=== PATIENT | female | born 1980 | race Caucasian/White ===

== ENCOUNTER 2016-07-22 16:49 | Emergency (ER) | payer MEDICAID ==
[~2016-07-22] VITALS: Wt 87.0 kg
[2016-07-22] MEDS ORDERED: ACETAMINOPHEN 500 MG TAB PO STA (17:18)
[2016-07-22] MEDS ORDERED: LEVALBUTEROL (NEB) 1.25 MG/0.5 ML AMP INH STA (17:18)
[2016-07-22] MEDS ORDERED: IPRATROPIUM (NEB) 0.5 MG/2.5 ML AMP NEB STA (17:18)
--- NOTE | 2016-07-22 17:28 | ERD ---
ER Documentation Chief Complaint Date/Time DATE: 07/22/16 TIME: 17:26 Chief Complaint COUGH AND WHEEZING SINCE LAST NIGHT. FEVER TODAY. HPI This is a 36-year-old female who presents to the emergency department today complaining of cough and wheezing that started yesterday. Patient states that she took NyQuil last night. States that she thinks she has a fever that started today. Denies any headache, nausea vomiting diarrhea, sore throat Denies any oral contraceptive use. Denies any cigarette smoke, and or prolonged travel, ROS All systems reviewed and are negative except as per history of present illness. Medications Home Meds Active Scripts Albuterol Sulfate* (Proair HFA*) 8.5 Gm Hfa.aer.ad, 2 PUFF INH Q4, #1 INHALER Prov:JUAN MEIER PA-C 07/22/16 Acetaminophen* (Tylophen*) 500 Mg Capsule, 1 CAP PO Q6H Y for PAIN AND OR ELEVATED TEMP, #30 CAP Prov:JUAN MEIER PA-C 07/22/16 Ibuprofen* (Motrin*) 600 Mg Tab, 600 MG PO Q6, #30 TAB Prov:JUAN MEIER PA-C 07/22/16 Guaifenesin-Dextromethorphan* (Robitussin* DM) 100MG/10MG/5ML Syrup, 10 ML PO Q4H Y for COUGH for 5 Days, ML Prov:JUAN MEIER PA-C 07/22/16 PMhx/Soc Medical and Surgical Hx: pt denies Medical Hx, pt denies Surgical Hx Hx Alcohol Use: No Hx Substance Use: No Physical Exam Vitals Vital Signs Date Time Temp Pulse Resp B/P Pulse Ox O2 Delivery O2 Flow Rate FiO2 07/22/16 17:35 105 22 99 21 07/22/16 17:00 101.5 105 22 131/75 99 Physical Exam Const: Obese, no acute distress Head: Atraumatic Eyes: Normal Conjunctiva ENT: His TMs normal. Nose no drainage. Throat no erythema no exudate Neck: Full range of motion..~ No meningismus. Resp: Clear to auscultation bilaterally. No absent breath sounds. No wheezing. Actively coughing Cardio: Regular rate and rhythm, no murmurs Abd: Soft, non tender, non distended. Normal bowel sounds Skin: No petechiae or rashes Neur: Awake and alert Psych: Normal Mood and Affect Results 24 hrs Current Medications Medications (Trade) Dose Ordered Sig/Bettye Route PRN Reason Start Time Stop Time Status Last Admin Dose Admin Ipratropium [place] (Atrovent 0.02% (Neb)) 0.5 mg ONCE STAT NEB 07/22/16 17:18 07/22/16 17:19 07/22/16 17:32 Levalbuterol (Xopenex Neb) 1.25 mg ONCE STAT INH 07/22/16 17:18 2 17:19 07/22/16 17:32 Acetaminophen (Tylenol Tab) 1,000 mg ONCE STAT PO 07/22/16 17:18 07/22/16 17:19 07/22/16 17:44 Procedures/MDM This a 36-year-old female who presents to the emergency department today for wheezing and cough that started last night. On physical exam patient does not have any wheezing however she is febrile at 101.5, tachycardic at 105. She is saturating at 99%. Patient was given a breathing treatment here in the emergency department she is actively coughing. I also obtained a chest x-ray. Chest x-ray read and interpreted by Dr. Chiang as negative. Low suspicion for pneumonia, PE, pleural effusion, abscess. She was given Tylenol here in the emergency department and fever improved. Patient's symptoms at this time consistent with URI likely viral versus influenza. Do not feel the patient requires antibiotics at this time. Patient will be given a prescription for Tylenol, Motrin, Robitussin as well as albuterol for any wheezing. At this time the patient is stable for discharge and outpatient management. Patient should follow up with their PCP in the next 1-2 days. They may return to the emergency department sooner for any persistent or worsening of symptoms. Patient understood and agreed with the plan. Departure Diagnosis: Primary Impression: Viral syndrome Condition: JUAN England PA-C Jul 22, 2016 17:28
[2016-07-22] MEDS ORDERED: UDROBDM PO (19:06)
[2016-07-22] MEDS ORDERED: IBUP-1542 PO (19:06)
[2016-07-22] MEDS ORDERED: ACET500C5 PO (19:07)
[2016-07-22] MEDS ORDERED: ALBU8.5H3 INH (19:08)
[2016-07-22 19:28] VITALS: BP 110/62; PULSE 99; RESP 16; TEMP 98.7
--- NOTE | 2016-07-22 20:01 | RADRPT ---
PROCEDURE: XR Chest. CLINICAL INDICATION: Cough. Fever TECHNIQUE: Single frontal chest x-ray. COMPARISON: None. FINDINGS: The lungs are clear of acute infiltrates, edema, effusions, or masses.. The cardiomediastinal silho uette is unremarkable. The osseous structures are intact. IMPRESSION: No acute cardiopulmonary disease. RPTAT: HJPL .Gold Mary MD, MD Date Time Electronically viewed and signed by .Gold Mary MD, MD on 07/22/2016 20:01 .L/
== END 2016-07-22 19:28 | disposition home or self-care (01) ==
LOC: FTE 16:49
DX: B34.9 Viral infection, unspecified (principal)
CPT/HCPCS: 71010; 94664; Z7502; Z7610

== ENCOUNTER 2016-09-16 20:23 | Emergency (ER) | payer OTHER ==
[~2016-09-16] VITALS: Ht 157.5 cm; Wt 97.5 kg
[~2016-09-16 20:23] MED LIST: ACET500C5 PO; ALBU8.5H3 INH; IBUP-1542 PO; UDROBDM PO
[2016-09-16 20:36] VITALS: Ht 157.5 cm; Wt 97.5 kg
[2016-09-16] MEDS ORDERED: HYDROCODONE/APAP (5/325) TAB PO ONE (22:00)
--- NOTE | 2016-09-16 22:30 | ERD ---
ER Documentation Chief Complaint Date/Time DATE: 09/16/16 TIME: 22:27 Chief Complaint Pt with R shoulder pain X 3 days. No injury noted. HPI Patient is a 36-year-old female who presents to the ED with right shoulder pain 3 days. She states that she is a [employer] and has been lifting patients develop pain after an incident 3 days ago. She states that she has difficulty moving her right arm. Denies numbness or tingling. Denies neck pain or neck stiffness. Denies back pain. Denies fever or chills. Denies abdominal pain, nausea, vomiting or diarrhea. She states that she is taking 1800 mg of ibuprofen today. no other complaints. ROS All systems reviewed and are negative except as per history of present illness. Medications Home Meds Active Scripts Naproxen* (Naprosyn*) 500 Mg Tablet, 500 MG PO BID Y for PAIN AND/OR INFLAMMATION, #30 TAB Prov:SACHIN MUSA PA-C 09/16/16 Albuterol Sulfate* (Proair HFA*) 8.5 Gm Hfa.aer.ad, 2 PUFF INH Q4, #1 INHALER Prov:JUAN MEIER PA-C 07/22/16 Acetaminophen* (Tylophen*) 500 Mg Capsule, 1 CAP PO Q6H Y for PAIN AND OR ELEVATED TEMP, #30 CAP Prov:JUAN MEIER PA-C 07/22/16 Ibuprofen* (Motrin*) 600 Mg Tab, 600 MG PO Q6, #30 TAB Prov:JUAN MEIER PA-C 07/22/16 Guaifenesin-Dextromethorphan* (Robitussin* DM) 100MG/10MG/5ML Syrup, 10 ML PO Q4H Y for COUGH for 5 Days, ML Prov:JUAN MEIER PA-C 07/22/16 PMhx/Soc Medical and Surgical Hx: pt denies Medical Hx, pt denies Surgical Hx History of Surgery: No Anesthesia Reaction: No Hx Neurological Disorder: No Hx Respiratory Disorders: No Hx Psychiatric Problems: No Hx Miscellaneous Medical Probl: Yes (Hypothyroidism) Hx Alcohol Use: No Hx Substance Use: No Smoking Status: Never smoker FmHx Family History: No coronary disease, No diabetes, No other Physical Exam Vitals Vital Signs Date Time Temp Pulse Resp B/P Pulse Ox O2 Delivery O2 Flow Rate FiO2 09/16/16 23:03 98.1 59 17 109/71 99 Room Air 09/16/16 20:36 98.6 71 14 104/60 99 Physical Exam GENERAL: Well-developed, well-nourished female. Appears in no acute distress. NECK: Supple. No lymphadenopathy or thyromegaly. No meningismus. negative kernig. negative brudinski. Nontender to spinal. Range of motion intact. LUNG: Clear to auscultation bilaterally. No rhonchi, wheezing, rales or coarse breath sounds. HEART: Regular rate and rhythm. No murmurs, rubs or gallops. Extremities: Equal pulses bilaterally. No peripheral clubbing, cyanosis or edema. No unilateral leg swelling. Tenderness to anterior shoulder. Minimal range of motion. Radius, ulnar and median nerve intact. Sensation intact. No wrist drop. No snuffbox tenderness. No pain below the shoulder joint. Or above the joint. NEUROLOGIC: Alert and oriented.. Normal speech. Steady gait. SKIN: Normal color. Warm and dry. No rashes or lesions. Capillary refill < 2 seconds Results 24 hrs Current Medications Medications (Trade) Dose Ordered Sig/Bettye Route PRN Reason Start Time Stop Time Status Last Admin Dose Admin Acetaminophen/ Hydrocodone Bitart ([place] (5/325)) 1 tab ONCE ONCE PO 09/16/16 22:00 09/16/16 22:01 DC 09/16/16 21:56 Procedures/MDM ER COURSE: I kept the patient and/or family informed of laboratory and diagnostic imaging results throughout the emergency room course. IMAGING STUDIES [place] [address] Radiology Main Line: [phone] DIAGNOSTIC IMAGING REPORT Patient: JOSSELYN LOPEZ : 1980 Age: 36 Sex: F MR #: [id number] [facility] #: [id number] DOS: 09/16/16 2147 Ordering MD: SACHIN MUSA PA-C Location: FTE Room/Bed: PROCEDURE: XR Right Shoulder. CLINICAL INDICATION: Right shoulder pain. TECHNIQUE: Three views. Frontal internal rotation, frontal external rotation , and scapular Y-view. COMPARISON: No prior study is available for comparison. FINDINGS: There is no fracture or dislocation. The soft tissues are normal. Articular surfaces are intact. There is no lytic or blastic lesion. There is no radiopaque foreign body. IMPRESSION: 1. Normal images of the right shoulder. RPTAT: QQ .Erick Granados MD, Date Time Electronically viewed and signed by .Erick Granados MD, on 09/16/2016 22:46 .R/ CC: SACHIN MUSA PA-C MEDICATIONS [place]. Tolerated well with no adverse reaction. Stated improvement in her symptoms. MEDICAL DECISION MAKING: This is a 36-year-old female who presents with right shoulder pain 3 days. Vital signs were reviewed. Patient is afebrile. Patient is not hypoxic. Patient is not toxic or ill-appearing. Patient has right shoulder pain of unknown etiology. Low suspicion for dislocation, fracture, septic joint, compartment syndrome, osteomyelitis, cellulitis, avascular necrosis, neurological injury, vascular injury, tendon laceration. Patient was given in ED sling. Neurovascularly intact post sling placement. DISCHARGE: At this time, patient is stable for discharge and outpatient management with no new complaints during the ER course. Patient was sent home with Naprosyn for pain, ice and heat. A copy of imaging study was given to patient.. Patient will be discharged home with instructions to recheck for new or worsening symptoms such as fever, nausea, weakness, LOC and to follow up with primary care in the next 1-2 days. Patient was advised to return to the ER for any new or worsening symptoms. Plan was discussed and patient and/or family understands and agrees. Home instructions were given. Departure Diagnosis: Primary Impression: Shoulder pain Laterality: right Chronicity: acute Qualified Code: M25.511 - Acute pain of right shoulder Condition: Stable SACHIN MUSA PA-C Sep 16, 2016 22:30
--- NOTE | 2016-09-16 22:46 | RADRPT ---
PROCEDURE: XR Right Shoulder. CLINICAL INDICATION: Right shoulder pain. TECHNIQUE: Three views. Frontal internal rotation, frontal external rotation, and scapular Y-view . COMPARISON: No prior study is available for comparison. FINDINGS: There is no fracture or dislocation. The soft tissues are normal. Articular surfaces are intact. There is no lytic or blastic lesion. There is no radiopaque foreign body. IMPRESSION: 1. Normal images of the right shoulder. RPTAT: QQ .Erick Granados MD, MD Date Time Electronically viewed and signed by .Erick Granados MD, MD on 09/16/2016 22:46 .R/
[2016-09-16] MEDS ORDERED: NAPR-260 PO (22:52)
[2016-09-16 23:03] VITALS: BP 109/71; PULSE 59; RESP 17; TEMP 98.1
== END 2016-09-16 23:03 | disposition home or self-care (01) ==
LOC: FTE 20:23
DX: S49.91XA Unspecified injury of right shoulder and upper arm, initial encounter (principal); E03.9 Hypothyroidism, unspecified; X50.0XXA Overexertion from strenuous movement or load, initial encounter; Y92.9 Unspecified place or not applicable
CPT/HCPCS: 73030; Z7610